=== PATIENT | male | born 1965 | race Caucasian/White ===

== ENCOUNTER 2018-06-14 23:48 | Emergency (ER) | payer MEDICAID ==
[~2018-06-14] VITALS: Ht 185.4 cm; Wt 124.0 kg
--- NOTE | 2018-06-15 00:08 | NUR ---
ASSESSMENT MADE. PA AT BEDSIDE.
[2018-06-15 00:25] LABS: BASOPHILS # (AUTO) 0.11 x10^3/uL (0-0.1); BASOPHILS % (AUTO) 1 % (0-1); EOSINOPHILS # (AUTO) 0.52 x10^3/uL (0-0.4); EOSINOPHILS % (AUTO) 6 % (1-7); LYMPHOCYTES # (AUTO) 2.99 x10^3/uL (1-3.4); LYMPHOCYTES % (AUTO) 34 % (22-44); MD NO; MEAN CORPUSCULAR HGB CONC 33.7 g/dL (33.2-36.2); MEAN PLATELET VOLUME 6.6 fL (7.4-10.4); MONOCYTES % (AUTO) 7 % (2-9); NEUTROPHILS # (AUTO) 4.57 x10^3/uL (1.8-6.8); NEUTROPHILS % (AUTO) 52 % (42-75); PLATELET COUNT 311 x10^3/uL (130-400); RED BLOOD COUNT 4.93 x10^6/uL (4.38-5.82); RED CELL DISTRIBUTION WIDTH 13.3 % (9.4-14.8)
[2018-06-15] MEDS ORDERED: SODIUM CHLORIDE FLUSH 10ML SYR IVF ONE (00:30)
[2018-06-15 00:32] LABS: ALBUMIN 3.6 g/dL (3.4-5.0); ANION GAP 4 mmol/L (5-15); CALCIUM 10.7 mg/dL (8.5-10.1); CHLORIDE 113 mmol/L (98-107); CREATININE 1.06 mg/dL (0.7-1.3)
[2018-06-15 00:36] LABS: TROPONIN I < 0.015 ng/mL (0.000-0.045)
--- NOTE | 2018-06-15 01:32 | NUR ---
TRANSFER SET UP WITH [facility]. DEBO AT THIS TIME 0200
[2018-06-15 01:33] VITALS: BP 106/64
--- NOTE | 2018-06-15 01:38 | NUR ---
REPORT GIVEN TO [facility]
== END 2018-06-15 02:08 | disposition home or self-care (01) ==
LOC: ED 06-15 01:27
DX: I20.1 Angina pectoris with documented spasm (principal); I10 Essential (primary) hypertension; I25.2 Old myocardial infarction
CPT/HCPCS: 36415; 71045; 80048; 82040; 84484; 85025; 93005; 99284

== ENCOUNTER 2018-12-09 12:20 | Observation (INO) | payer MEDICAID ==
[~2018-12-09] VITALS: Ht 185.4 cm; Wt 140.0 kg
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
[2018-12-09] MEDS ORDERED: ASPIRIN 81 MG TABLET CHEW ONE (12:45)
[2018-12-09] MEDS ORDERED: LORazepam 2 MG/ML, 1ML ONE (12:46)
--- NOTE | 2018-12-09 12:53 | NUR ---
PT MEDICATED WITH [facility] AND ATIVAN. WILL MONITOR CLOSELY. PT APPEARS CALM. VSS.
[2018-12-09 12:56] LABS: BASOPHILS # (AUTO) 0.05 x10^3/uL (0-0.1); BASOPHILS % (AUTO) 1 % (0-1); EOSINOPHILS # (AUTO) 0.46 x10^3/uL (0-0.4); EOSINOPHILS % (AUTO) 6 % (1-7); LYMPHOCYTES # (AUTO) 2.05 x10^3/uL (1-3.4); LYMPHOCYTES % (AUTO) 28 % (22-44); MD NO; MEAN CORPUSCULAR HEMOGLOBIN 29.2 pg (27.5-34.5); MEAN CORPUSCULAR HGB CONC 32.6 g/dL (33.2-36.2); MEAN CORPUSCULAR VOLUME 89.6 fL (81-97); MEAN PLATELET VOLUME 6.4 fL (7.4-10.4); MONOCYTES # (AUTO) 0.46 x10^3/uL (0.2-0.8); MONOCYTES % (AUTO) 6 % (2-9); NEUTROPHILS # (AUTO) 4.37 x10^3/uL (1.8-6.8); NEUTROPHILS % (AUTO) 59 % (42-75); PLATELET COUNT 357 x10^3/uL (130-400); RED BLOOD COUNT 5.52 x10^6/uL (4.38-5.82); RED CELL DISTRIBUTION WIDTH 13.7 % (9.4-14.8)
[2018-12-09] MEDS ORDERED: ASPIRIN 81 MG TABLET CHEW PO ONE (13:00)
[2018-12-09] MEDS ORDERED: SODIUM CHLORIDE FLUSH 10ML SYR IVF ONE (13:00)
[2018-12-09] MEDS ORDERED: LORazepam 2 MG/ML, 1ML IVPush ONE (13:00)
[2018-12-09 13:02] LABS: INTERNATIONAL NORMALIZED RATIO 0.94 (0.93-1.1); PROTHROMBIN TIME 9.9 Seconds (9.6-11.5)
[2018-12-09 13:06] LABS: ALBUMIN 3.5 g/dL (3.4-5.0); ANION GAP 6 mmol/L (5-15); CALCIUM 10.4 mg/dL (8.5-10.1); CHLORIDE 115 mmol/L (98-107)
[2018-12-09 13:12] LABS: ALANINE AMINOTRANSFERASE 36 U/L (12-78); ALKALINE PHOSPHATASE 120 U/L (45-117); BILIRUBIN,TOTAL 0.3 mg/dL (0.2-1.0); CREATININE 1.34 mg/dL (0.7-1.3); TOTAL PROTEIN 7.7 g/dL (6.4-8.2); TROPONIN I < 0.015 ng/mL (0.000-0.045)
[2018-12-09] MEDS ORDERED: ASPIRIN 325 MG TABLET EC ONE (14:20)
[2018-12-09] MEDS ORDERED: HEPARIN 5,000 UNITS/ML, 1ML ONE (14:20)
[2018-12-09] MEDS: HEPARIN 5,000 UNITS/ML, 1ML SQ SCH ×2 (14:24→22:40)
--- NOTE | 2018-12-09 14:27 | NUR ---
PT REPORTS HIS CHEST PAIN IS GONE BUT HE STILL HAS "REALLY BAD ANXIETY"
[2018-12-09] MEDS ORDERED: ASPIRIN 325 MG TABLET EC PO ONE (14:30)
[2018-12-09] MEDS ORDERED: ACETAMINOPHEN 325 MG TABLET PO PRN (14:30)
[2018-12-09] MEDS ORDERED: OXYcodone IR 5MG TABLET PO PRN (14:30)
[2018-12-09] MEDS ORDERED: morphine SULFATE 10 MG/ML, 1ML IV PRN (14:30)
[2018-12-09] MEDS ORDERED: NITROGLYCERIN 0.4 MG BOTTLE (25 TABS) SL PRN (14:30)
[2018-12-09 14:47] LABS: CHOL/HDL RATIO 5.6
[2018-12-09] MEDS ORDERED: HYDROXYZINE PAMOATE 50MG CAP PO PRN (16:00)
[2018-12-09] MEDS ORDERED: NITROGLYCERIN 0.4 MG/SPRAY SL PRN (16:00)
[2018-12-09 18:33] LABS: TROPONIN I < 0.015 ng/mL (0.000-0.045)
[2018-12-09 20:07] VITALS: BP 148/79
[2018-12-09] MEDS: SODIUM CHLORIDE FLUSH 10ML SYR IVF SCH (20:22)
[2018-12-10 01:20] LABS: TROPONIN I < 0.015 ng/mL (0.000-0.045)
[2018-12-10 01:28] VITALS: BP 143/81
[2018-12-10] MEDS: HEPARIN 5,000 UNITS/ML, 1ML SQ SCH ×2 (05:43→14:00)
[2018-12-10] MEDS ORDERED: ASPIRIN 325 MG TABLET EC PO SCH (06:00)
[2018-12-10 08:16] VITALS: BP 135/80
[2018-12-10 08:25] LABS: ANION GAP 7 mmol/L (5-15); CALCIUM 10.2 mg/dL (8.5-10.1); CHLORIDE 115 mmol/L (98-107); CREATININE 1.28 mg/dL (0.7-1.3)
[2018-12-10] MEDS: SODIUM CHLORIDE FLUSH 10ML SYR IVF SCH (08:47)
[2018-12-10] MEDS ORDERED: FLUOXETINE HCL 20 MG CAPSULE PO SCH (09:00)
[2018-12-10] MEDS ORDERED: niFEDipine ER 30 MG TABLET.ER PO SCH (09:00)
[2018-12-10] MEDS ORDERED: CLON0.5T11 PO (09:52)
[2018-12-10] MEDS ORDERED: FLUO40CA2 PO (09:52)
[2018-12-10] MEDS ORDERED: OLAN5TAB7 PO (09:53)
[2018-12-10] MEDS ORDERED: DILT240C2 PO (12:15)
[2018-12-10] MEDS ORDERED: ASPI-650 PO (12:15)
[2018-12-10] MEDS ORDERED: ISOS60TA36 PO (12:15)
[2018-12-10] MEDS ORDERED: ATOR-2 PO (12:15)
[2018-12-10 14:00] VITALS: BP 138/72
[2018-12-10] MEDS ORDERED: ATORVASTATIN 20 MG TABLET PO SCH (21:00)
== END 2018-12-10 15:50 | disposition home or self-care (01) ==
LOC: ED 13:10 → INTOOBSV 13:22 → EDIP 13:22 → 5SO 16:00 → DCLOUNGE 12-10 15:40
PROVIDERS: ADMIT Internal Medicine; ATTEND Internal Medicine
DX: I20.1 Angina pectoris with documented spasm (principal); F41.9 Anxiety disorder, unspecified; N17.9 Acute kidney failure, unspecified; E83.52 Hypercalcemia; F13.20 Sedative, hypnotic or anxiolytic dependence, uncomplicated; I10 Essential (primary) hypertension; F17.210 Nicotine dependence, cigarettes, uncomplicated; Z79.82 Long term (current) use of aspirin; Z79.899 Other long term (current) drug therapy
CPT/HCPCS: 36415; 71045; 80048; 80053; 80061; 83880; 84100; 84484; 85025; 85610; 93005; 96372; 96374; 99284; G0378; J1644; J2060